=== PATIENT | male | born 1945 | race Caucasian/White ===

== ENCOUNTER 2016-07-27 17:49 | Inpatient (IN) | payer MEDICARE ==
[~2016-07-27] VITALS: Ht 188 cm; Wt 115.3 kg
--- NOTE | 2016-07-27 17:49 | NUR ---
brooke 37 from home c/o left shoulder pain s/p tripped and fell around 1pm, -ko. Awaiting MD order
--- NOTE | 2016-07-27 18:20 | NUR ---
SOFTWARE PROJECT MANAGER AT BEDSIDE
--- NOTE | 2016-07-27 18:38 | NUR ---
DR.SOBECK SAMUEL QUANTITATIVE RESEARCH ANALYST
[2016-07-27] MEDS ORDERED: ONDANSETRON HCL/PF 4 MG/2 ML VIAL ONE (18:48)
[2016-07-27] MEDS ORDERED: MORPHINE SULFATE INJ 4 MG/ML DISP.SYRIN ONE (18:48)
--- NOTE | 2016-07-27 18:54 | NUR ---
rac #[id number] iv access. blood sample collected sent to lab
--- NOTE | 2016-07-27 18:54 | NUR ---
ekg in progress
[2016-07-27 19:00] LABS: BASOPHILS % (AUTO) 0.3 % (0.0-2.0); EOSINOPHILS % (AUTO) 0.5 % (0.0-6.0); HEMATOCRIT 37 % (39-51); HEMOGLOBIN 12.1 g/dL (13.5-17.5); LYMPHOCYTES # (AUTO) 0.7 /CMM (0.8-4.8); MEAN CORPUSCULAR HEMOGLOBIN 33 PG (26.0-33.0); MEAN CORPUSCULAR HGB CONC 33 g/dl (31.0-36.0); MEAN CORPUSCULAR VOLUME 100 fL (80-96); MONOCYTES # (AUTO) 0.6 /CMM (0.1-1.30); MONOCYTES % (AUTO) 6.2 % (2.0-12.0); NEUTROPHILS # (AUTO) 8.1 /CMM (1.8-8.9); PLATELET COUNT (AUTO) 131 /CMM (150-450); RDW COEFFICIENT OF VARIATION 13.3 (11.5-15.0); RED BLOOD CELL COUNT(AUTO) 3.66 MIL/uL (4.5-6.0); WHITE BLOOD COUNT (AUTO) 9.4 K/uL (4.3-11.0)
[2016-07-27] MEDS ORDERED: ONDANSETRON HCL/PF - ER 4 MG/2 ML VIAL IV ONE (19:00)
[2016-07-27] MEDS ORDERED: MORPHINE SULFATE INJ 2 MG/ML DISP.SYRIN IV ONE (19:00)
[2016-07-27] MEDS ORDERED: ATEN50TA PO (19:05)
[2016-07-27] MEDS ORDERED: TRIA1TAB3 PO (19:05)
[2016-07-27] MEDS ORDERED: ALLO100T PO (19:05)
[2016-07-27] MEDS ORDERED: INDO50CA PO (19:05)
[2016-07-27] MEDS ORDERED: MELO-264 PO (19:05)
[2016-07-27] MEDS ORDERED: LOSA1TAB36 PO (19:05)
[2016-07-27] MEDS ORDERED: ANAS1TAB8 PO (19:05)
[2016-07-27 19:10] LABS: CALCIUM, SERUM 8.8 mg/dL (8.5-10.1); CARBON DIOXIDE 22 mmol/L (21-32); CHLORIDE 108 mmol/L (98-107); GLUCOSE 130 mg/dL (74-106); POTASSIUM 5.2 mmol/L (3.5-5.1); SODIUM SERUM 141 mmol/L (136-145); UREA NITROGEN, BLOOD 64 mg/dL (7-18)
[2016-07-27 19:14] LABS: INR 0.95 (0.87-1.13); PROTHROMBIN TIME 9.9 SECS (9.5-12.7)
--- NOTE | 2016-07-27 19:18 | NUR ---
GAVE REPORT TO PEÑA FOR ANGELA
[2016-07-27 19:22] LABS: CREATININE 3.1 mg/dL (0.6-1.3)
[2016-07-27] MEDS ORDERED: IV SET PRIMARY 1 EA INFUS.SET MC ONE (19:29)
[2016-07-27] MEDS ORDERED: IV NS 0.9% 500 ML IV ONE (19:29)
[2016-07-27] MEDS ORDERED: IV NS 0.9% 500 ML BAG IV ONE (19:30)
--- NOTE | 2016-07-27 19:33 | NUR ---
[facility] PAGED, DR.VU SEARS DEPUTY K 9
[2016-07-27] MEDS ORDERED: IV NS 0.9% 1,000 ML IV PRN (19:47)
[2016-07-27] MEDS ORDERED: ONDANSETRON HCL/PF 4 MG/2 ML VIAL IVP PRN (20:00)
[2016-07-27] MEDS ORDERED: ACETAMINOPHEN 325 MG TABLET PO PRN (20:00)
[2016-07-27] MEDS ORDERED: ZOLPIDEM TARTRATE 5 MG TABLET PO PRN (20:00)
[2016-07-27] MEDS ORDERED: SODIUM POLYSTYRENE SULFONATE 15 G/60 ML BOTTLE PO ONE (20:00)
[2016-07-27] MEDS ORDERED: MAGNESIUM HYDROXIDE 30 ML UDC PO PRN (20:00)
[2016-07-27] MEDS ORDERED: Z GUARD REMEDY 2 OZ OINT TP PRN (20:00)
[2016-07-27] MEDS ORDERED: HYDROCODONE/APAP 5/325MG 1 EACH TABLET PO PRN (20:00)
[2016-07-27] MEDS ORDERED: MAG HYDROX/AL HYDROX/SIMETH 30 ML UDC PO PRN (20:00)
--- NOTE | 2016-07-27 20:15 | NUR ---
REPORT GIVENT Viola KEATING/RN ON BEHALF OF PRIMARY NURSE PEÑA.
--- NOTE | 2016-07-27 20:31 | NUR ---
PT IS GOING TO MED SURG PER DR. SEARS.
[2016-07-27 20:40] VITALS: BP 156/67
--- NOTE | 2016-07-27 20:40 | NUR ---
RN NOTES ADMITTED A 70 YEARS OLD MALE PT FROM ER WITH PRIMARY DIAGNOSIS OF LEFT HUMERAL FRACTURE AFTER A MECHANICAL FALL AT HOME, UNDER DR SEARS. PT ALERT AND ORIENTED X3, NO SOB, NOT IN DISTRESS, ON ROOM AIR AND TOLERATED WELL. VITAL SIGNS STABLE, NO COMPLAIN OF NAUSEA AND VOMITING. LEFT ARM ON SLING, PAIN ON LEFT ARM AND SHOULDER AT TOLERABLE LEVEL AT THIS TIME, PAIN ONLY ON MOVEMENT. SKIN AND BODY ASSESSMENT DONE WITH PICTURES TAKEN AND FILED ON THE CHART. ON CARDIAC DIET AND TOLERATED WELL. SAFETY MEASURES AND FALL PRECAUTION OBSERVED. ALL ORDERS NOTED AND CARRIED OUT. WILL CONTINUE TO MONITOR PT.
[2016-07-27] MEDS ORDERED: IV NS 0.9% 1,000 ML ONE (21:37)
[2016-07-27] MEDS ORDERED: IV SET PRIMARY PUMP SET 1 EA INFUS.SET MC ONE (21:37)
[2016-07-27] MEDS ORDERED: SODIUM POLYSTYRENE SULFONATE 15 G/60 ML BOTTLE ONE (22:32)
[2016-07-28] VITALS (12 sets, daily range): BP systolic 103–159; BP diastolic 49–99
[2016-07-28] MEDS: MORPHINE SULFATE INJ 2 MG/ML DISP.SYRIN IV PRN ×2 (00:26→08:31)
--- NOTE | 2016-07-28 00:26 | NUR ---
RN NOTES PT COMPLAINS OF PAIN ON HIS LEFT ARM AND SHOULDER 09/30, MORPHINE 2MG GIVEN IV. WILL CONTINUE TO MONITOR PT.
--- NOTE | 2016-07-28 07:12 | NUR ---
RN NOTES PT AWAKE, NO SOB, NOT IN DISTRESS, TOLERATING ROOM AIR . LEFT ARM KEPT ON A SLING , COMPLAINS OF PAIN ON MOVEMENT. VITAL SIGNS STABLE , AFEBRILE. NO EPISODE OF NAUSEA AND VOMITING. ASSISTED TO THE BATHROOM, WITH STEADY GAIT. KEPT PAIN AT TOLERABLE LEVEL. SAFETY MEASURES IN PLACE. ALL NEEDS MET. FOR ORTHO AND NEPHRO CONSULT. ENDORSED TO MORNING RN FOR CONTINUITY OF CARE.
[2016-07-28 07:16] LABS: BASOPHILS % (AUTO) 0.4 % (0.0-2.0); EOSINOPHILS # (AUTO) 0.1 /CMM (0.0-0.7); EOSINOPHILS % (AUTO) 1.6 % (0.0-6.0); HEMATOCRIT 32 % (39-51); LYMPHOCYTES # (AUTO) 1.3 /CMM (0.8-4.8); LYMPHOCYTES % (AUTO) 17.3 % (20.0-44.0); MEAN CORPUSCULAR HEMOGLOBIN 34 PG (26.0-33.0); MEAN CORPUSCULAR HGB CONC 34 g/dl (31.0-36.0); MEAN CORPUSCULAR VOLUME 99 fL (80-96); MONOCYTES # (AUTO) 0.6 /CMM (0.1-1.30); MONOCYTES % (AUTO) 8.6 % (2.0-12.0); NEUTROPHILS # (AUTO) 5.3 /CMM (1.8-8.9); NEUTROPHILS % (AUTO) 72.1 % (43.0-81.0); PLATELET COUNT (AUTO) 113 /CMM (150-450); RDW COEFFICIENT OF VARIATION 14.2 (11.5-15.0); RED BLOOD CELL COUNT(AUTO) 3.23 MIL/uL (4.5-6.0); WHITE BLOOD COUNT (AUTO) 7.4 K/uL (4.3-11.0)
[2016-07-28 07:34] LABS: ALANINE AMINOTRANSFERASE 73 U/L (12-78); ALBUMIN 3.2 g/dL (3.4-5.0); ALKALINE PHOSPHATASE 79 U/L (46-116); ASPARTATE AMINOTRANSFERASE 48 U/L (15-37); BILIRUBIN,TOTAL 0.6 mg/dL (0.2-1.0); CALCIUM, SERUM 8.2 mg/dL (8.5-10.1); CARBON DIOXIDE 20 mmol/L (21-32); CHLORIDE 105 mmol/L (98-107); CREATININE 2.6 mg/dL (0.6-1.3); GLUCOSE 120 mg/dL (74-106); MAGNESIUM 1.8 mg/dL (1.8-2.4); PHOSPHORUS 3.9 mg/dL (2.5-4.9); POTASSIUM 4.2 mmol/L (3.5-5.1); SODIUM SERUM 139 mmol/L (136-145); TOTAL PROTEIN, SERUM 6.5 g/dL (6.4-8.2); UREA NITROGEN, BLOOD 62 mg/dL (7-18)
--- NOTE | 2016-07-28 07:49 | NUR ---
MS RN NOTES RECEIVED REPORT WITH PATIENT SITTING UP IN BED. PATIENT IS CURRENTLY A/OX4. NO S/S OF SOB NOTED. NO S/S OF ACUTE DISTRESS NOTED. PATIENT STATES HIS LEFT SHOULDER HURTS. WILL ADMINISTER PAIN MEDICATION. CALL LIGHT IS WITHIN REACH. BED IS IN LOWEST LOCKED POSITION. WILL CONTINUE TO MONITOR THROUGHOUT SHIFT.
[2016-07-28] MEDS ORDERED: IV NS 0.9% 1,000 ML IV PRN (08:06)
[2016-07-28] MEDS: ALLOPURINOL 100 MG TABLET PO SCH ×2 (08:30→17:38)
[2016-07-28] MEDS: PANTOPRAZOLE 40 MG TABLET.DR PO SCH (08:30)
[2016-07-28] MEDS: ATENOLOL 50 MG TABLET PO SCH (08:30)
[2016-07-28] MEDS: ANASTROZOLE 1 MG TABLET PO SCH (08:38)
[2016-07-28] MEDS ORDERED: TRIAMTERENE/HYDROCHLOROTHIAZID (37.5/25MG) 1 UDCAP PO SCH (09:00)
[2016-07-28 09:21] LABS: THYROID STIMULATING HORMONE 2.299 uIU/mL (0.358-3.74)
[2016-07-28] MEDS ORDERED: FENTANYL PF 100MCG/2ML AMPUL ONE ×2 (12:45→13:34)
[2016-07-28] MEDS ORDERED: MIDAZOLAM HCL 2 MG/2ML VIAL ONE (12:45)
[2016-07-28] MEDS ORDERED: ATRACURIUM 100MG/10 ML MDV IV ONE (12:45)
[2016-07-28] MEDS ORDERED: BACITRACIN 50000 UNITS/VIAL ONE (13:18)
--- NOTE | 2016-07-28 14:10 | NUR ---
MS RN NOTES PATIENT RETURNED FROM SURGERY IN STABLE CONDITION. NO SOB NOTED. NO S/S OF ACUTE DISTRESS NOTED. ORDERS RECEIVED FOR A SLING ON THE PATIENT'S LEFT ARM, PATIENT TO BE ON A REGULAR DIET, OK TO D/C SLING IN 48 HOURS, NORCO 1 OR 2 PO Q6H PRN, OK TO GO HOME WHEN STABLE. WILL CONTINUE TO MONITOR.
[2016-07-28] MEDS ORDERED: HYDROCODONE/APAP 5/325MG 1 EACH TABLET PO PRN (14:11)
[2016-07-28] MEDS: HYDROCODONE/APAP 5/325MG 1 EACH TABLET PO PRN (15:18)
--- NOTE | 2016-07-28 18:58 | NUR ---
MS RN NOTES PATIENT IS A/OX3. PATIENT SITTING UP IN BED WATCHING TV. DENIES ANY PAIN AT THIS TIME. IV IS PATENT AND INTACT. NO SOB NOTED. NO DISTRESS NOTED. CALL LIGHT WITHIN REACH. BED IS IN LOW LOCKED POSITION. WILL ENDORSE CARE TO PM SHIFT.
--- NOTE | 2016-07-28 19:20 | NUR ---
RN NOTES RECEIVED PT AWAKE, HOB ELEVATED, NO SOB, NOT IN DISTRESS, ON ROOM AIR AND TOLERATED WELL. PT DENIES ANY PAIN AND DISCOMFORT AT THIS TIME. PT IS S/P ORIF OF LEFT PROXIMAL HUMERUS FRACTURE. LEFT UPPER ARM WITH DRESSING INTACT, DRY AND CLEAN AND PLACED IN A SLING. IV ACCESS ON RIGHT AC PATENT AND INTACT. KEPT BED IN THE LOWEST POSITION, LOCKED, SIDE RAILS X3 UP, WITH CALL LIGHT WITH IN REACH. KEPT COMFORTABLE AND ATTENDED. WILL CONTINUE TO MONITOR PT.
[2016-07-29] MEDS: HYDROCODONE/APAP 5/325MG 1 EACH TABLET PO PRN ×2 (05:34→10:00)
--- NOTE | 2016-07-29 05:34 | NUR ---
RN NOTES PT COMPLAINS OF LEFT SHOULDER PAIN 08/30, NORCO 5/325 MG 2TABS GIVEN PO. WILL CONTINUE TO MONITOR PT.
--- NOTE | 2016-07-29 06:53 | NUR ---
RN NOTES PT AWAKE, OUT OF BED, SITTING IN THE CHAIR. NO SOB, NOT IN DISTRESS, ON ROOM AIR AND TOLERATED WELL. LEFT UPPER EXTREMITY KEPT ON A SLING. PAIN ON LEFT SHOULDER AT TOLERABLE LEVEL AT THIS TIME. PAIN ONLY ON MOVEMENT. FALL PRECAUTION OBSERVED. PT EXPECTED TO BE D/C HOME TODAY. ALL NEEDS ATTENDED. WILL ENDORSE TO MORNING RN FOR CONTINUITY OF CARE.
[2016-07-29 07:00] LABS: BASOPHILS % (AUTO) 0.1 % (0.0-2.0); HEMATOCRIT 34 % (39-51); HEMOGLOBIN 11.5 g/dL (13.5-17.5); LYMPHOCYTES # (AUTO) 1.1 /CMM (0.8-4.8); LYMPHOCYTES % (AUTO) 10.9 % (20.0-44.0); MEAN CORPUSCULAR HEMOGLOBIN 34 PG (26.0-33.0); MEAN CORPUSCULAR HGB CONC 34 g/dl (31.0-36.0); MEAN CORPUSCULAR VOLUME 100 fL (80-96); MONOCYTES # (AUTO) 0.6 /CMM (0.1-1.30); NEUTROPHILS # (AUTO) 8.4 /CMM (1.8-8.9); PLATELET COUNT (AUTO) 155 /CMM (150-450); RDW COEFFICIENT OF VARIATION 13.9 (11.5-15.0); RED BLOOD CELL COUNT(AUTO) 3.38 MIL/uL (4.5-6.0); WHITE BLOOD COUNT (AUTO) 10.1 K/uL (4.3-11.0)
[2016-07-29 07:24] LABS: ALANINE AMINOTRANSFERASE 64 U/L (12-78); ALBUMIN 3.4 g/dL (3.4-5.0); ALKALINE PHOSPHATASE 76 U/L (46-116); ASPARTATE AMINOTRANSFERASE 43 U/L (15-37); BILIRUBIN,TOTAL 0.9 mg/dL (0.2-1.0); CALCIUM, SERUM 8.3 mg/dL (8.5-10.1); CARBON DIOXIDE 15 mmol/L (21-32); CHLORIDE 104 mmol/L (98-107); CREATININE 2.5 mg/dL (0.6-1.3); GLUCOSE 144 mg/dL (74-106); MAGNESIUM 1.7 mg/dL (1.8-2.4); PHOSPHORUS 4.1 mg/dL (2.5-4.9); POTASSIUM 4.3 mmol/L (3.5-5.1); SODIUM SERUM 138 mmol/L (136-145); TOTAL PROTEIN, SERUM 7.4 g/dL (6.4-8.2); UREA NITROGEN, BLOOD 58 mg/dL (7-18)
--- NOTE | 2016-07-29 07:24 | NUR ---
MS RN OPENING NOTES PT RECEIVED AWAKE IN BED IN NO ACUTE SIGNS OF DISTRESS. ALERT AND ORIENTED X4, DENIES ANY PAIN OR DISCOMFORTS AT THIS TIME. IV ACCESS ON RAC G#18 INTACT AND PATENT. SLING ON LEFT UPPER EXT IN PLACE. CALL LIGHT WITHIN REACH. BED ALARM IN PLACE. BED IN LOW POSITION AND LOCKED. SAFETY PRECAUTIONS MAINTAINED. WILL CONTINUE TO MONITOR ACCORDINGLY.
[2016-07-29 08:00] VITALS: BP_SYST 103; BP_DIAS 49; BP_DIAS 59
[2016-07-29] MEDS: ANASTROZOLE 1 MG TABLET PO SCH (08:29)
[2016-07-29] MEDS: PANTOPRAZOLE 40 MG TABLET.DR PO SCH (08:29)
[2016-07-29 08:30] VITALS: BP 103/49
[2016-07-29] MEDS: ATENOLOL 50 MG TABLET PO SCH (08:30)
[2016-07-29] MEDS: ALLOPURINOL 100 MG TABLET PO SCH (08:30)
[2016-07-29] MEDS ORDERED: SECONDARY IV SET 1 EA INFUS.SET MC ONE (09:19)
[2016-07-29] MEDS: Magnesium 1GM/D5W 100ML PREMIX 100 ML IV SCH ×2 (09:23→10:51)
--- NOTE | 2016-07-29 09:31 | NUR ---
RN NOTES PT SEEN AND EVALUATED BY SHIPPING WEIGHER, ALL BLOOD WORKS RESULTS TODAY SEEN AND NOTED WITH LOW MG 1.7 AND ORDERED TO GIVE MG SULFATE 1GM/100ML D5W IV X 2 DOSES. WILL CONTINUE TO MONITOR.
[2016-07-29] MEDS ORDERED: HYDR-3326 PO (09:48)
--- NOTE | 2016-07-29 10:06 | NUR ---
RN NOTES PATIENT COMPLAINING OF PAIN TO LEFT ARM BUT REFUSED THE MORPHINE INJ AND WANTED THE NORCO 10MG/325MG BUT WAS GIVEN 4HRS AGO. APPLICATION SERVICES MANAGER ABBY MADE AWARE AND SAID OK TO GIVE. APPLICATION SERVICES MANAGER ALSO ORDERED PT FOR DISCHARGE TODAY.
--- NOTE | 2016-07-29 13:04 | NUR ---
RN DISCHARGED NOTES PATIENT DISCHARGED HOME IN STABLE CONDITION. ALERT AND ORIENTED X4. HE LEFT THE UNIT AMBULATORY ACCOMPANIED BY PARTNER. PATIENT WITH NO C/O PAIN OR DISCOMFORTS DURING DISCHARGE. VITALS SIGNS TAKEN AND RECORDED. BELONGINGS CHECKED, COUNTED AND SIGNED FORM. HEALTH TEACHINGS/DISCHARGE INSTRUCTIONS GIVEN AND VERBALIZED UNDERSTANDING. PHOTOS OF SKIN WOUNDS AND DISCOLORATION GIVEN. MD AND CHARGE NURSE AWARE OF DISCHARGE.
== END 2016-07-29 12:41 | disposition home or self-care (01) | DRG 492 ==
LOC: ER 17:51 → TELE 20:21 → MED 21:50
PROVIDERS: ADMIT Family Medicine; ATTEND Family Medicine
PROC: 0PSG06Z Reposition Left Humeral Shaft with Intramedullary Internal Fixation Device, Open Approach (ICD-10-PCS; principal; 2016-07-28 13:17)
DX: S42.212A Unspecified displaced fracture of surgical neck of left humerus, initial encounter for closed fracture (principal); N17.0 Acute kidney failure with tubular necrosis; E44.1 Mild protein-calorie malnutrition; S42.252A Displaced fracture of greater tuberosity of left humerus, initial encounter for closed fracture; W01.0XXA Fall on same level from slipping, tripping and stumbling without subsequent striking against object, initial encounter; E66.9 Obesity, unspecified; Z68.32 Body mass index [BMI] 32.0-32.9, adult; Z71.3 Dietary counseling and surveillance; E88.09 Other disorders of plasma-protein metabolism, not elsewhere classified; M10.9 Gout, unspecified; I12.9 Hypertensive chronic kidney disease with stage 1 through stage 4 chronic kidney disease, or unspecified chronic kidney disease; N18.9 Chronic kidney disease, unspecified; T39.395A Adverse effect of other nonsteroidal anti-inflammatory drugs [NSAID], initial encounter; T50.2X5A Adverse effect of carbonic-anhydrase inhibitors, benzothiadiazides and other diuretics, initial encounter; Y92.009 Unspecified place in unspecified non-institutional (private) residence as the place of occurrence of the external cause; E87.5 Hyperkalemia; E78.5 Hyperlipidemia, unspecified; M19.90 Unspecified osteoarthritis, unspecified site; D69.6 Thrombocytopenia, unspecified; D53.9 Nutritional anemia, unspecified; N14.1 Nephropathy induced by other drugs, medicaments and biological substances
CPT/HCPCS: 36415; 71010-TC; 73020; 73030-TC; 80048-TC; 80053-TC; 80061-TC; 82306; 82728-TC; 83540-TC; 83735-TC; 83880; 84100-TC; 84439-TC; 84443-TC; 85025-TC; 85730-TC; 86850-TC; 87081-TC; 97001-TC; A4565; A4606; A6253; A6402; J1100; J2250; J2270; J2405; J2704; J3010; J3475; J7030; J7040; Z7610